=== PATIENT | male | born 1950 | race Caucasian/White ===

== ENCOUNTER 2022-01-27 11:30 | Outpatient (RCR) | payer MEDICARE, OTHER, SELFPAY ==
[2021-12-15 13:16] LABS: Basophils Absolute Auto 0.02 K/uL (0.00-0.30); Basophils Percent Auto 0.2 % (0.0-3.0); Eosinophils Absolute Auto 0.14 K/uL (0.00-0.50); Eosinophils Percent Auto 1.7 % (0.0-7.0); Hematocrit 42.6 % (37.0-53.0); Hemoglobin* 14.2 gm/dL (13.5-17.5); Immature Granulocytes Abs Auto 0.01 K/uL (0.00-0.30); Lymphocytes Absolute Auto 1.78 K/uL (0.90-2.90); Lymphocytes Percent Auto 22.1 % (20-44); Mean Corpuscular HGB Conc 33 gm/dL (32-36); Mean Corpuscular Hemoglobin 32 pg (26-34); Mean Corpuscular Volume 96 fL (80-100); Monocytes Percent Auto 8.4 % (0.0-11.0); Neutrophils Absolute Auto 5.43 K/uL (1.7-7.0); Neutrophils Percent Auto 67.5 % (42.0-72.0); Platelet Count* 404 K/uL (140-440); RDW Coefficient of Variation % 13.1 % (11.5-15.5); Red Blood Count 4.46 m/uL (4.30-5.90); White Blood Count* 8.06 K/uL (4.50-11.00)
[2021-12-15 13:30] LABS: Chloride* 102 mmol/L (96-114)
[2021-12-15 13:31] LABS: Potassium* 4.6 mmol/L (3.6-5.1); Sodium* 137 mmol/L (135-149)
[2021-12-15 13:33] LABS: Bilirubin Total* 0.4 mg/dL (0.1-1.5); Carbon Dioxide* 30 mmol/L (20-32); Creatinine* 0.6 mg/dL (0.5-1.5); Estimated Glomerular Filt Rate 103 ml/min; Total Protein* 6.9 g/dL (6.0-8.3)
[2021-12-15 13:34] LABS: Alanine Aminotransferase* 23 U/L (4-50); Alkaline Phosphatase* 150 U/L (40-150); Aspartate Amino Transferase* 24 U/L (12-35); Blood Urea Nitrogen* 16 mg/dL (7-30); Calcium* 8.9 mg/dL (8.4-10.6); Glucose* 233 mg/dL (60-115); Slide Review Reflex No
--- NOTE | 2021-12-16 13:56 | URNOTE ---
Request received from [facility] for prior authorization of Cisplatin [id number], Aloxi [id number] and Emend [id number]. Patient carries Medicare as primary insurance. Per CMS.gov LCD [id number] no prior authorization is required for Cisplatin. PEr CMS.gov no prior authorization is required for Aloxi and EMend. Services are based on medical necessity and follow Medicare guidelines.
[2021-12-19 11:17] VITALS: BP 136/79; PULSE 77; RESP 16; TEMP 36.2; O2SAT 96
[2021-12-19] MEDS: MAGNESIUM SULFATE 2 GM, POTASSIUM CHLORIDE 10 MEQ in 0.9 % SODIUM CHLORIDE 1000 ml 1,00... IV (12:35)
[2021-12-19] MEDS: dexAMETHasone 10 MG in 0.9 % SODIUM CHLORIDE 100 ml 100 ML 404 MG IVPB (13:26)
[2021-12-19] MEDS: PALONOSETRON 0.25 MG/5 ML inj IV (13:26)
[2021-12-19] MEDS: FOSAPREPITANT 150 MG inj 150 MG in 0.9 % SODIUM CHLORIDE 250 ml 250 ML 510 MG IVPB (14:02)
--- NOTE | 2021-12-20 16:28 | ONC.NURNOTE ---
Product Development Consultant called patient to see how he was and he stated he was great-no nausea so he hasn't needed any of those pills! Product Development Consultant re-explained that he was given a calendar with scheduled medications to prevent nausea and explained to him it's alot easier to treat nausea early before onset. Patient explains that he will start pills now.
[2021-12-27 09:10] LABS: Basophils Absolute Auto 0.03 K/uL (0.00-0.30); Basophils Percent Auto 0.4 % (0.0-3.0); Eosinophils Percent Auto 3.9 % (0.0-7.0); Hematocrit 40.7 % (37.0-53.0); Hemoglobin* 13.8 gm/dL (13.5-17.5); Immature Granulocytes Abs Auto 0.02 K/uL (0.00-0.30); Lymphocytes Absolute Auto 1.59 K/uL (0.90-2.90); Lymphocytes Percent Auto 20.7 % (20-44); Mean Corpuscular HGB Conc 34 gm/dL (32-36); Mean Corpuscular Hemoglobin 32 pg (26-34); Mean Corpuscular Volume 95 fL (80-100); Monocytes Percent Auto 10.4 % (0.0-11.0); Neutrophils Absolute Auto 4.95 K/uL (1.7-7.0); Neutrophils Percent Auto 64.3 % (42.0-72.0); Platelet Count* 384 K/uL (140-440); Red Blood Count 4.28 m/uL (4.30-5.90); White Blood Count* 7.69 K/uL (4.50-11.00)
[2021-12-27 09:12] VITALS: BP 120/76; PULSE 84; RESP 16; TEMP 36.6; O2SAT 95
[2021-12-27 09:14] LABS: Slide Review Reflex No
[2021-12-27 09:25] LABS: Albumin* 4.1 g/dL (3.3-5.0); Chloride* 98 mmol/L (96-114)
[2021-12-27 09:26] LABS: Potassium* 4.7 mmol/L (3.6-5.1); Sodium* 134 mmol/L (135-149)
[2021-12-27 09:28] LABS: Alkaline Phosphatase* 122 U/L (40-150); Aspartate Amino Transferase* 33 U/L (12-35); Bilirubin Total* 0.3 mg/dL (0.1-1.5); Blood Urea Nitrogen* 18 mg/dL (7-30); Carbon Dioxide* 30 mmol/L (20-32); Creatinine* 0.6 mg/dL (0.5-1.5); Estimated Glomerular Filt Rate 103 ml/min; Total Protein* 6.8 g/dL (6.0-8.3)
[2021-12-27 09:29] LABS: Alanine Aminotransferase* 28 U/L (4-50); Glucose* 265 mg/dL (60-115)
[2021-12-27 09:45] LABS: Magnesium* 1.8 mg/dL (1.5-2.6)
[2021-12-27] MEDS: MAGNESIUM SULFATE 2 GM, POTASSIUM CHLORIDE 10 MEQ in 0.9 % SODIUM CHLORIDE 1000 ml 1,00... IV (10:21)
[2021-12-27] MEDS: PALONOSETRON 0.25 MG/5 ML inj IV (11:45)
[2021-12-27] MEDS: dexAMETHasone 10 MG in 0.9 % SODIUM CHLORIDE 100 ml 100 ML 404 MG IVPB (11:48)
[2021-12-27] MEDS: FOSAPREPITANT 150 MG inj 150 MG in 0.9 % SODIUM CHLORIDE 250 ml 250 ML 510 MG IVPB (12:10)
[2022-01-02 09:42] LABS: Basophils Absolute Auto 0.02 K/uL (0.00-0.30); Basophils Percent Auto 0.2 % (0.0-3.0); Eosinophils Absolute Auto 0.18 K/uL (0.00-0.50); Eosinophils Percent Auto 1.7 % (0.0-7.0); Hematocrit 40.4 % (37.0-53.0); Hemoglobin* 13.5 gm/dL (13.5-17.5); Immature Granulocytes Abs Auto 0.02 K/uL (0.00-0.30); Lymphocytes Percent Auto 10.1 % (20-44); Mean Corpuscular HGB Conc 33 gm/dL (32-36); Mean Corpuscular Hemoglobin 32 pg (26-34); Mean Corpuscular Volume 96 fL (80-100); Monocytes Percent Auto 7.5 % (0.0-11.0); Neutrophils Percent Auto 80.3 % (42.0-72.0); Platelet Count* 338 K/uL (140-440); RDW Coefficient of Variation % 13.2 % (11.5-15.5); Red Blood Count 4.21 m/uL (4.30-5.90); White Blood Count* 10.29 K/uL (4.50-11.00)
[2022-01-02 09:51] LABS: Chloride* 100 mmol/L (96-114); Potassium* 4.6 mmol/L (3.6-5.1); Sodium* 136 mmol/L (135-149)
[2022-01-02 09:51] LABS: Slide Review Reflex No
[2022-01-02 09:53] LABS: Bilirubin Total* 0.4 mg/dL (0.1-1.5); Creatinine* 0.6 mg/dL (0.5-1.5); Estimated Glomerular Filt Rate 103 ml/min
[2022-01-02 09:54] LABS: Alanine Aminotransferase* 32 U/L (4-50); Alkaline Phosphatase* 113 U/L (40-150); Aspartate Amino Transferase* 30 U/L (12-35); Blood Urea Nitrogen* 19 mg/dL (7-30); Calcium* 8.8 mg/dL (8.4-10.6); Carbon Dioxide* 30 mmol/L (20-32); Glucose* 190 mg/dL (60-115); Total Protein* 6.7 g/dL (6.0-8.3)
[2022-01-02 11:08] LABS: Magnesium* 1.6 mg/dL (1.5-2.6)
[2022-01-02] MEDS: MAGNESIUM SULFATE 2 GM, POTASSIUM CHLORIDE 10 MEQ in 0.9 % SODIUM CHLORIDE 1000 ml 1,00... IV (11:43)
[2022-01-02] MEDS: PALONOSETRON 0.25 MG/5 ML inj IV (12:49)
[2022-01-02] MEDS: dexAMETHasone 10 MG in 0.9 % SODIUM CHLORIDE 100 ml 100 ML 404 MG IVPB (12:50)
[2022-01-02] MEDS: FOSAPREPITANT 150 MG inj 150 MG in 0.9 % SODIUM CHLORIDE 250 ml 250 ML 510 MG IVPB (13:22)
[2022-01-06 11:10] VITALS: BP 121/65; PULSE 88; RESP 18; TEMP 36.9; O2SAT 96
[2022-01-09 09:17] LABS: Basophils Absolute Auto 0.01 K/uL (0.00-0.30); Basophils Percent Auto 0.1 % (0.0-3.0); Eosinophils Absolute Auto 0.05 K/uL (0.00-0.50); Eosinophils Percent Auto 0.5 % (0.0-7.0); Hematocrit 38.7 % (37.0-53.0); Hemoglobin* 12.9 gm/dL (13.5-17.5); Immature Granulocytes Abs Auto 0.01 K/uL (0.00-0.30); Lymphocytes Percent Auto 7.3 % (20-44); Mean Corpuscular HGB Conc 33 gm/dL (32-36); Mean Corpuscular Hemoglobin 32 pg (26-34); Mean Corpuscular Volume 97 fL (80-100); Monocytes Percent Auto 7.6 % (0.0-11.0); Neutrophils Percent Auto 84.4 % (42.0-72.0); Platelet Count* 308 K/uL (140-440); Red Blood Count 4.01 m/uL (4.30-5.90); White Blood Count* 9.63 K/uL (4.50-11.00)
[2022-01-09 09:21] LABS: Slide Review Reflex No
[2022-01-09 09:26] VITALS: BP 96/58; PULSE 95; RESP 16; TEMP 36.9; O2SAT 95
[2022-01-09 09:35] LABS: Albumin* 3.8 g/dL (3.3-5.0); Chloride* 97 mmol/L (96-114); Sodium* 136 mmol/L (135-149)
[2022-01-09 09:37] LABS: Bilirubin Total* 0.5 mg/dL (0.1-1.5); Creatinine* 0.7 mg/dL (0.5-1.5); Estimated Glomerular Filt Rate 99 ml/min
[2022-01-09 09:38] LABS: Alanine Aminotransferase* 26 U/L (4-50); Alkaline Phosphatase* 101 U/L (40-150); Aspartate Amino Transferase* 29 U/L (12-35); Blood Urea Nitrogen* 24 mg/dL (7-30); Calcium* 8.1 mg/dL (8.4-10.6); Carbon Dioxide* 29 mmol/L (20-32); Glucose* 187 mg/dL (60-115); Magnesium* 1.2 mg/dL (1.5-2.6); Total Protein* 6.5 g/dL (6.0-8.3)
[2022-01-09] MEDS: PALONOSETRON 0.25 MG/5 ML inj IV (11:42)
[2022-01-09] MEDS: dexAMETHasone 10 MG in 0.9 % SODIUM CHLORIDE 100 ml 100 ML 404 MG IVPB (11:42)
[2022-01-09] MEDS: FOSAPREPITANT 150 MG inj 150 MG in 0.9 % SODIUM CHLORIDE 250 ml 250 ML 510 MG IVPB (12:03)
[2022-01-09] MEDS: SODIUM CHLORIDE 0.9 % (FLUSH) 10 ML SYRINGE IVF (14:30)
--- NOTE | 2022-01-09 15:04 | ONC.NURNOTE ---
Some slight learning disability. not taking in enough liquids or solids. enc pt to eat or drink anything possible. pt states nothing tastes well. offered a nurtrician consult. pt refused. states likes ice cream. enc with boost to make a shake. new rx for Mag. called in by Ayesha DAVIS. pt given written instructions on med and enc to warehouse order picker today and start. enc to take on empty stomach. pt states has a supportive friend. and excited to watch football tonight. plan for pt to return tomorrow for fluid and poss mag after his mag is checked. pt did not want to leave iv in.
[2022-01-10 09:33] VITALS: BP 118/60; PULSE 79; RESP 16; TEMP 36.6; O2SAT 96
[2022-01-10 10:26] LABS: Magnesium* 1.7 mg/dL (1.5-2.6)
--- NOTE | 2022-01-10 13:33 | ONC.NURNOTE ---
Pt here for magnesium recheck and fluids. VSS. Mag 1.7 today. Pt requesting fluids daily d/t to inability to eat and drink from pain/taste changes. Pt has been taking magic mouthwash and oxycodone for pain which was prescribed by Radiation oncology. Pt does c/o some nausea, no vomiting. Pt requesting refill of zofran. Pt also has had significant wt loss. Discussed with Ayesha Anderson APRN regarding symptoms pt experiencing. Ayesha Anedrson and field underwriter called and spoke to Odalys Short at radiation with concerns. Pt has an appt with Dr. Delgado tomorrow, nutrition consult ordered and roll winder will reach out to pt to see when he would like to meet. Zofran refilled by Ayesha Cade APRN. Will continue to monitor daily. Pt verbalized understanding of plan of care.
[2022-01-11 11:06] VITALS: BP 109/66; PULSE 85; RESP 16; TEMP 37; O2SAT 95
[2022-01-11] MEDS: 0.9 % SODIUM CHLORIDE 1000 ml 1,000 ML 700 ML IV (11:40)
[2022-01-11] MEDS: SODIUM CHLORIDE 0.9 % (FLUSH) 10 ML SYRINGE IVF (13:17)
[2022-01-12 11:15] VITALS: BP 118/68; PULSE 93; RESP 16; TEMP 36.8
[2022-01-12] MEDS: 0.9 % SODIUM CHLORIDE 1000 ml 1,000 ML IV (12:03)
[2022-01-13 11:36] VITALS: BP 112/69; PULSE 91; RESP 16; TEMP 37.1; O2SAT 94
[2022-01-13] MEDS: SODIUM CHLORIDE 0.9 % (FLUSH) 10 ML SYRINGE IVF (12:02)
[2022-01-13] MEDS: 0.9 % SODIUM CHLORIDE 1000 ml 1,000 ML IV (12:04)
[2022-01-13 12:21] LABS: Chloride* 99 mmol/L (96-114); Sodium* 139 mmol/L (135-149)
[2022-01-13 12:22] LABS: Potassium* 3.6 mmol/L (3.6-5.1)
[2022-01-13 12:24] LABS: Creatinine* 0.8 mg/dL (0.5-1.5); Estimated Glomerular Filt Rate 95 ml/min
[2022-01-13 12:25] LABS: Blood Urea Nitrogen* 28 mg/dL (7-30); Calcium* 7.7 mg/dL (8.4-10.6); Carbon Dioxide* 29 mmol/L (20-32); Glucose* 192 mg/dL (60-115)
[2022-01-13 12:28] LABS: Magnesium* 0.9 mg/dL (1.5-2.6)
[2022-01-13] MEDS: MAGNESIUM IV 2 GM/50 ML PIGGYBACK IVPB ×2 (12:46→14:28)
[2022-01-13 15:25] LABS: Albumin* 3.5 g/dL (3.3-5.0)
[2022-01-13 15:28] LABS: Alkaline Phosphatase* 85 U/L (40-150); Aspartate Amino Transferase* 36 U/L (12-35); Bilirubin Direct* 0.3 mg/dL (0.0-0.5); Bilirubin Total* 0.5 mg/dL (0.1-1.5); Total Protein* 6.2 g/dL (6.0-8.3)
[2022-01-13 15:29] LABS: Alanine Aminotransferase* 26 U/L (4-50)
[2022-01-14 13:12] VITALS: BP 129/68; PULSE 76; RESP 18; TEMP 37.1; O2SAT 94
[2022-01-14] MEDS: MAGNESIUM SULFATE 2 GM, POTASSIUM CHLORIDE 10 MEQ in 0.9 % SODIUM CHLORIDE 1000 ml 1,00... IV (13:13)
[2022-01-14] MEDS: SODIUM CHLORIDE 0.9 % (FLUSH) 10 ML SYRINGE IVF (13:13)
[2022-01-15 12:55] VITALS: BP 126/68; PULSE 89; RESP 16; TEMP 36.8; O2SAT 96
[2022-01-15] MEDS: MAGNESIUM SULFATE 2 GM, POTASSIUM CHLORIDE 10 MEQ in 0.9 % SODIUM CHLORIDE 1000 ml 1,00... IV (13:02)
[2022-01-16 09:30] VITALS: BP 147/82; PULSE 74; RESP 16; TEMP 36.4; O2SAT 95
[2022-01-16 09:34] LABS: Basophils Absolute Auto 0.01 K/uL (0.00-0.30); Basophils Percent Auto 0.2 % (0.0-3.0); Eosinophils Absolute Auto 0.03 K/uL (0.00-0.50); Eosinophils Percent Auto 0.6 % (0.0-7.0); Hemoglobin* 12.7 gm/dL (13.5-17.5); Immature Granulocytes Abs Auto 0.01 K/uL (0.00-0.30); Lymphocytes Percent Auto 10.7 % (20-44); Mean Corpuscular HGB Conc 34 gm/dL (32-36); Mean Corpuscular Hemoglobin 33 pg (26-34); Mean Corpuscular Volume 95 fL (80-100); Monocytes Percent Auto 11.7 % (0.0-11.0); Neutrophils Percent Auto 76.6 % (42.0-72.0); Platelet Count* 226 K/uL (140-440); RDW Coefficient of Variation % 13.5 % (11.5-15.5); White Blood Count* 4.88 K/uL (4.50-11.00)
[2022-01-16 09:37] LABS: Slide Review Reflex No
[2022-01-16 10:09] LABS: Albumin* 3.7 g/dL (3.3-5.0); Blood Urea Nitrogen* 18 mg/dL (7-30); Calcium* 7.2 mg/dL (8.4-10.6); Carbon Dioxide* 29 mmol/L (20-32); Chloride* 100 mmol/L (96-114); Creatinine* 0.7 mg/dL (0.5-1.5); Estimated Glomerular Filt Rate 98 ml/min; Glucose* 182 mg/dL (60-115); Sodium* 143 mmol/L (135-149); Total Protein* 6.4 g/dL (6.0-8.3)
[2022-01-16 10:10] LABS: Alanine Aminotransferase* 26 U/L (4-50); Alkaline Phosphatase* 91 U/L (40-150); Aspartate Amino Transferase* 40 U/L (12-35); Bilirubin Total* 0.6 mg/dL (0.1-1.5)
[2022-01-16 10:11] LABS: Potassium* 2.9 mmol/L (3.6-5.1)
[2022-01-16] MEDS: SODIUM CHLORIDE 0.9 % (FLUSH) 10 ML SYRINGE IVF (10:51)
--- NOTE | 2022-01-16 11:09 | ONC.NURNOTE ---
Patient here for IV fluids stating I can't eat or drink so I need fluids-give me some water! States he has been unable to get anything in over weekend and not just from pain but also due to nausea. He did state he could take his nauseapill a few times but still can't eat or drink. Documentation Lead asked about diabetes and patient states his sugars have been steady at a good number does state he isin't taking as much insulin and then adjusto writer operator asked how he knew his sugar was getting low or was low and he stated he would get shaky and then would drink orange juice so adjusto writer operator let him know he said he couldn't drink but he said don't work I'd get something in. Tried to explain to patient that his electrolytes ar elow as well which are important for cardiac reasons and he stated that he would just come in everyday so we could fix him. Ayesha Cade APRN will see patient today-Patient put in for Maria E on
[2022-01-17 09:14] VITALS: BP 163/85; PULSE 71; RESP 16; TEMP 36.2
[2022-01-17 09:41] LABS: Chloride* 99 mmol/L (96-114); Sodium* 138 mmol/L (135-149)
[2022-01-17] MEDS: SODIUM CHLORIDE 0.9 % (FLUSH) 10 ML SYRINGE IVF (09:43)
[2022-01-17 09:44] LABS: Creatinine* 0.6 mg/dL (0.5-1.5); Estimated Glomerular Filt Rate 103 ml/min
[2022-01-17 09:45] LABS: Blood Urea Nitrogen* 15 mg/dL (7-30); Calcium* 7.3 mg/dL (8.4-10.6); Carbon Dioxide* 25 mmol/L (20-32); Glucose* 174 mg/dL (60-115); Magnesium* 1.2 mg/dL (1.5-2.6)
[2022-01-17 09:49] LABS: Potassium* 2.9 mmol/L (3.6-5.1)
[2022-01-18 08:36] VITALS: BP 148/77; PULSE 77; RESP 18; TEMP 37.4; O2SAT 97
[2022-01-18] MEDS: SODIUM CHLORIDE 0.9 % (FLUSH) 10 ML SYRINGE IVF ×2 (09:00→11:35)
[2022-01-18 09:11] LABS: Albumin* 3.7 g/dL (3.3-5.0); Chloride* 99 mmol/L (96-114)
[2022-01-18 09:12] LABS: Sodium* 140 mmol/L (135-149)
[2022-01-18 09:14] LABS: Carbon Dioxide* 28 mmol/L (20-32); Creatinine* 0.6 mg/dL (0.5-1.5); Estimated Glomerular Filt Rate 103 ml/min
[2022-01-18 09:16] LABS: Potassium* 2.9 mmol/L (3.6-5.1)
[2022-01-18 09:17] LABS: Blood Urea Nitrogen* 15 mg/dL (7-30); Calcium* 7.2 mg/dL (8.4-10.6)
[2022-01-18 09:18] LABS: Alanine Aminotransferase* 24 U/L (4-50); Alkaline Phosphatase* 89 U/L (40-150); Aspartate Amino Transferase* 36 U/L (12-35); Bilirubin Total* 0.5 mg/dL (0.1-1.5); Glucose* 177 mg/dL (60-115); Magnesium* 1.4 mg/dL (1.5-2.6); Total Protein* 6.2 g/dL (6.0-8.3)
--- NOTE | 2022-01-18 11:35 | ONC.NURNOTE ---
Patient here for fluids today. PLACEMENT SPECIALIST ordered CMP and magnesium level. These were resulted and found to be low again. IV had potassium and magnesium in them. Per patient at arrival, he will be admitted to [facility] after his infusion today. Nursing called radiation oncology to find out the plan for patient, and they note that they are still in conversation with [facility] to find a bed for patient. Patient stated to life underwriter that he plans to go to ER if they are unable to do a direct admit. This was passed onto PA with radiation oncology, she would like to avoid this as possible as it will take a long time. Radiation oncology requests to have patient come to them for earlier radiation, at which point they hope to have a bed lined up for patient. Import Coordination And Production Head asked that they please call our office to let us know the plan for patient when they are done. They were notified that PLACEMENT SPECIALIST is not in the office today, but that she is in communication with nursing for patient care, but that patient requests to go to [facility] versus coming back to us. PIV left in place in the situation that he comes back to us for further treatment here.
--- NOTE | 2022-01-27 10:54 | ONC.NURNOTE ---
Called patient to see if he is planning to come to [facility] tomorrow, as this is an old appointment. He said that he is currently residing in [place] with his sister and will not be coming to [place]. He was requesting pain medication, and radiation oncology has been managing this and they currently have a task out for this. Patient is aware of this. Asked to schedule the patient for a follow up with medical oncology, and he declined at this time. He notes that when he talks with radiation oncology, he will set something up with them. Timing Adjuster called radiation oncology and asked that they please let us know when patient is scheduled so that we can coordinate care for patient.
== END 2022-06-13 23:59 | disposition home or self-care (01) ==
LOC: CCIC 11:30
PROVIDERS: Clinical Nurse Specialist; Nurse Practitioner Family; PCP Surgery; Referring Provider Surgery; Visit Provider Internal Medicine
DX: C09.9 Malignant neoplasm of tonsil, unspecified (principal)
CPT/HCPCS: 36415; 36592; 80048; 80053; 80076; 83735; 85025; 96360; 96361; 96365; 96366; 96368; 96376; 96413; 99202; 99205; 99211; 99212; 99214; 99215; J0610; J1100; J1453; J2469; J3475; J3480; J7030; J7050; J7120; J9060

== ENCOUNTER 2022-05-11 14:21 | Outpatient (CLI) | payer MEDICARE, OTHER, SELFPAY ==
--- NOTE | 2022-05-11 14:45 | CRLHL7_ITS ---
For Patients: As a result of the 21st Century Cures Act, medical imaging exams and procedure reports are released immediately into your electronic medical record. You may view this report before your referring provider. If you have questions, please contact your health care provider. 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 Exam is being performed for restaging. TECHNIQUE: Patient received 13.1 millicuries of 18 FDG (18 fluorodeoxyglucose) intravenously. PET-CT imaging has been performed from the superior skull to mid thigh level [address] images have been obtained for attenuation correction and localization only. Blood glucose level: 189 mg/dL. COMPARISON: PET-CT dated 08/04/2021. FINDINGS: No abnormal uptake is identified in the mediastinum or hilar regions. The lungs demonstrate no significant abnormal uptake. Large calcified left hilar lymph nodes are noted. Large calcified nodule left lower lobe is identified. These findings are unchanged. The lungs demonstrate no significant abnormal uptake. Mild scarring in the left lung base is noted. The axilla and chest wall demonstrates no significant abnormal uptake. Visualized bilateral upper extremities demonstrate no abnormal uptake. Within the neck no abnormal hypermetabolic lymph nodes or masses are identified. There are posttreatment changes along the left neck. Focus of activity in the posterior lower musculature of the left neck is identified which is likely physiologic. There is a soft tissue nodule in the medial right maxillary sinus which is new. This demonstrates no abnormal uptake in is likely a retention cyst. Skullbase is unremarkable. Visualized scalp demonstrates no significant abnormal uptake. Limited assessment of the intracranial structures is unremarkable. The liver demonstrates no significant abnormal uptake. Numerous calcifications within the spleen are identified without abnormal uptake. The pancreas and bilateral adrenal glands demonstrate no significant abnormal uptake. The retrocrural region and retroperitoneum demonstrate no significant abnormal uptake. Iliac lalitha chain and groin demonstrate no abnormal uptake. There is some loss of counts within the pelvis due to the retained activity in the urinary bladder. Physiologic bowel and ureteric activity is noted. No suspicious skeletal lesions are seen. IMPRESSION: 1. No significant abnormal uptake is identified to suggest residual viable tumor or recurrent disease. There are posttreatment changes within the left neck. 2. Probable retention cyst right maxillary sinus without significant abnormal uptake. 3. No suspicious findings for distal metastatic disease. Other PET-CT findings as detailed above. Dictated by Vaughn Cook MD @ 05/19/2022 8:54:34 AM (Electronically Signed)
== END 2022-05-11 14:22 | disposition home or self-care (01) ==
LOC: RAD 14:22
PROVIDERS: PCP Surgery; Visit Provider Physician Assistant
DX: C09.9 Malignant neoplasm of tonsil, unspecified (principal)
CPT/HCPCS: 78815; A9552

== ENCOUNTER 2022-09-20 09:30 | Outpatient (RCR) | payer MEDICARE, OTHER, SELFPAY ==
--- NOTE | 2022-06-22 18:46 | OT.OPLE ---
OT Outpatient Lymphedema Eval OT Outpatient Lymphedema Eval Start: 06/22/22 18:02 Freq: Status: Active Protocol: Document 06/22/22 18:03 AMB (Rec: 06/22/22 18:42 AMB [id number]) E-signed By Bridgette Peck, OTR/L, CLT, DOOR REPAIRMAN OT Outpatient Evaluation Details Type Type Eval Complexity Low OT OP Lymphedema Evaluation Insurance Information Insurance Information Medicare B Current Condition/Medical Diagnosis Referring Provider Odalys Bragg PA-C Treatment Diagnosis Submental Lymphedema Date Of Onset 11/01/22 Medical Contraindications DM,CA,Stroke Current Work Status Current Work Status Retired Subjective Subjective Pt states he feels like he is doing well. Pt feels like the swelling in his neck has really improved, he has been working on the massage and exercises that the other therapist gave me. Pt also feels like the stiffness in his neck has really improved. Medical History Medical History Cancer Treatment/Surgery,DM, Radiation,Smoking,Chemo Medical History Comments Pt had a stroke in April which resulted in an emergency hospitalization with surgery to remove a blood clot from the LMCA. Testing procedures done during this hospitalization revealed an enlarged LN in the left side of his neck was was later removed and found to be cancerous. It was determined that the cancer originated in his left tonsil, bilateral tonsils were removed. Pt also underwent 30 rounds of radiation and 5 rounds of chemo. Pt really struggled with the last rounds of radiation, ended up having a feeding tube placed which has since been removed. 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 PMH also includes prostate cancer with prostectomy. Surgical History Surgical History Please see above Medications Medications Insulin Family History Family History of Lymphedema Yes Family History of Lymphedema Comments Pt states his sister had cancer of her leg and she ended up with swelling in her ankle. Living Situation Current Living Situation Comments The patient is . He has 3 children and 4 grandchildren. 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 He is a current smoker, half a pack a day, he quit at age 23 for approximately 30 years and restarted again once he was . No alcohol consumption, past history of alcohol abuse, quit approximately 7 years ago. Currently lives with roommate. Exercise History Does Patient Exercise Regularly No Exercise Comments Pt likes to golf in the summer . He states compliance with his neck and jaw ROM exs that he was given in PT Pain Pain Yes Pain Comments Pt states he rarely has any pain, if he does it's never more than a 1/10, soreness in my neck Loss of Function/Strength/Mobility Loss Of Function/Strength/Mobility No Loss Of Function/Strength/Mobility Mild tightness in end ranges Comments of cervical ROM. Previous Treatment Previous Treatment For Swelling/ MLD,Self Massage Lymphedema Previous Treatment/Current Home Program Pt was given a HEP during his course of PT that includes self MLD and ROM exs for C- spine and jaw. Compression History Does Patient Currently Wear Compression No During Daytime Does Patient Currently Wear Compression No At Night Current Swelling (Location/Pitting/Texture) Pitting Scale: 0 = No pitting 1+ Tissue returns to normal almost immediately 2+ Tissue returns after 15-30 seconds 3+ Tissue returns after 1-1/2 minutes 4+ Tissue returns after 2-3 minutes N/A Tissue no longer pits due to induration Tissue texture: Soft or indurated Clinical Presentation Area Submental Clinical Presentation Pitting No pitting Clinical Presentation Texture Soft, very mild, grade 0-1 lymphedema in the submental region. Type of Swelling Post Surgery/Traumatic Edema Staging Staging Stage 1 Skin Changes Skin Changes Fibrosis Skin Changes Comments Mild radiation induce fibrosis in the left neck region. Head & Neck Submental 67.5 Targus To Targus 29.5 Mandible To Mandible 18.0 Proximal Neck 44.0 Mid Neck 40.5 Base Of Neck 41.0 Total 240.5 Assessment Assessment Pt is a very pleasant 72yo male referred to OT secondary to submental lymphedema following cancer surgery and treatment (chemo / radiation) for tonsil cancer. Pt developed mild swelling ( lymphedema) in the submental region along with very mild radiation fibrosis. Pt was seen by PT back in March, he was given a HEP for cervical and jaw ROM and self MLD. According to pt, his swelling was more evident in March, he has been working on his home program and it has really improved, also feels like his neck is nearly back to normal as far as strength and ROM is concerned. Pt was provided with additional education regarding lymphedema and risk factors, circumferential measurements of the head and neck were also taken. Pt would like to continue with HEP / self MLD and return for re-assessment in 2 months to be sure that he has maintained his reduction / re-assess home program. Pt will benefit from 2-3 more visits to monitor progress with upgraded home program as needed. Pt will contact senior writer if he should have any concerns or questions prior to next visit. Problem List Problem List Limited Knowledge of Lymphedema Treatment/Condition /Precautions,Limited Knowledge of Skin Care & Infection Precautions,Significant Risk For Infection For Lymphedema Related Complications Patient Goals Patient Goals 1. Pt will demonstrate a general understanding of the lymphatic system, s/s of lymphedema, treatment of lymphedema, implications of untreated lymphedema, s/s of infection and the correlation of infection related to lymphedema. 3 months 2. Pt will be compliant with re-assessments for lymphedema surveillance in order to obtain early intervention with best outcomes if needed. 12 months Treatment Plan Treatment Plan Evaluation,Edema Control,Wound Care/Scar Management, Therapeutic Exercise, Therapeutic Activities,Self- Care/Home Management,Education Other Treatment Plan Re-assess in 8 weeks Expected Duration 4-6 Weeks Certification Certification I Certify That: Therapy Services Provided, Therapy Plan Established, Therapy Plan Reviewed Recertification Information Recertification Information Initial Certification Date 06/22/22 Recertification Due Date 09/20/22 Reasons to Continue Skilled Therapy Initiated OT today for lymphedema education and surveillance. Rehabilitation Potential Good Continued Plan of Care and Interventions Re-assess in 8 weeks. Provider Signature Shows Agreement With POC & Medical Necessity Physician Comment/Change Comment or Changes Physician NPI Number #
== END 2022-12-22 16:16 | disposition home or self-care (01) ==
PROVIDERS: PCP Surgery; Visit Provider Physician Assistant
DX: I89.8 Other specified noninfective disorders of lymphatic vessels and lymph nodes (principal); Z51.89 Encounter for other specified aftercare
CPT/HCPCS: 97110; 97140; 97161; 97165; 97535

== ENCOUNTER 2022-12-11 14:59 | Outpatient (RCR) | payer MEDICARE, OTHER, SELFPAY ==
[2022-12-11 17:19] LABS: Free T4 Free Thyroxine* 0.79 ng/dL (0.70-1.85)
== END 2023-06-09 23:59 | disposition home or self-care (01) ==
LOC: CCIC 14:59
PROVIDERS: PCP Surgery; Referring Provider Surgery; Visit Provider Internal Medicine
DX: C09.9 Malignant neoplasm of tonsil, unspecified (principal); R53.0 Neoplastic (malignant) related fatigue
CPT/HCPCS: 36415; 84439

== ENCOUNTER 2023-02-08 10:44 | Outpatient (CLI) | payer MEDICARE, OTHER, SELFPAY ==
--- NOTE | 2023-02-08 11:00 | CRLHL7_ITS ---
For Patients: As a result of the Century Cures Act, medical imaging exams and procedure reports are released immediately into your electronic medical record. You may view this report before your referring provider. If you have questions, please contact your health care provider. CLINICAL INFORMATION: Malignant neoplasm of the tonsil. TECHNIQUE: Contrast-enhanced CT of the chest was obtained. Coronal and sagittal reformatted images were obtained. Contrast: 76 mL of Omnipaque 350 intravenous contrast was injected uneventfully prior to image acquisition. Radiation Dose Estimate (Total Exam DLP): 693 mGy-cm. COMPARISON: PET-CT 05/11/2022 08/04/2021. FINDINGS: Chest: Thyroid: Unremarkable Lungs: Stable appearing calcified left lower lobe granulomas. Bibasilar dependent atelectatic changes. No focal airspace opacities or pleural effusions. No suspicious pulmonary nodules. Heart/Pericardium: Heart normal in size. No pericardial effusion. No central filling defects within the main, left, and right pulmonary arteries. Lymph Nodes: Calcified mediastinal left hilar lymph nodes. Upper Abdomen: Stable hypoattenuated right hepatic lobe lesion. Scattered calcified granulomas in the liver and spleen. Musculoskeletal: Visualized osseous structures demonstrate diffuse degenerative changes. IMPRESSION: 1. Stable appearing granulomatous disease in the chest. No suspicious pulmonary lesions. No evidence of metastatic disease. Please note that all CT scans at this facility use dose modulation, iterative reconstruction, and/or weight-based dosing when appropriate to reduce radiation dose to as low as reasonably achievable. Dictated by Demar Cooley MD @ 02/10/2023 8:42:19 PM (Electronically Signed)
--- NOTE | 2023-02-08 11:00 | CRLHL7_ITS ---
For Patients: As a result of the Cures Act, medical imaging exams and procedure reports are released immediately into your electronic medical record. You may view this report before your referring provider. If you have questions, please contact your health care provider. INDICATION: History of malignant neoplasm of the tonsil and associated left side metastatic lymphadenopathy. Status post tonsillectomy and chemo radiation. Follow up. TECHNIQUE: CT images were acquired through the neck from above the orbits to the superior mediastinum during infusion of iodinated contrast. Multiplanar reconstructions are obtained. COMPARISON: CTA exam of the neck dated 05/13/2021. FINDINGS: No evidence of recurrent/residual mass seen in the oropharynx/tonsillar fossa at this time. Previously noted enlarged hypodense lymph nodes within the left upper neck are no longer seen, consistent with surgical resection or response to chemo radiation. Associated diminished fat planes within the left carotid space consistent with prior treatment changes. No new enlarged lymph nodes seen within the neck soft tissues. Nasal fossa, nasopharynx are unremarkable. The parotid and submandibular glands unremarkable. Subtle increased densities within the supraglottic fat consistent with post treatment change. Thyroid gland unremarkable. Advanced degenerative changes in the cervical spine. IMPRESSION: 1. Consistent with post treatment changes in the left upper neck, supraglottis and oral pharynx. 2. No CT evidence of recurrent/residual tumor within the neck soft tissues at this time. 3. Advanced degenerative changes in the cervical spine. Please note that all CT scans at this facility use dose modulation, iterative reconstruction, and/or weight-based dosing when appropriate to reduce radiation dose to as low as reasonably achievable. Dictated by Maulik Brothers MD @ 02/09/2023 8:46:23 PM (Electronically Signed)
[2023-02-08 11:16] LABS: Creatinine* 0.8 mg/dL (0.5-1.5); Estimated Glomerular Filt Rate 93 ml/min
== END 2023-02-08 10:45 | disposition home or self-care (01) ==
LOC: CT 10:45
PROVIDERS: PCP Surgery; Visit Provider Internal Medicine
DX: C09.9 Malignant neoplasm of tonsil, unspecified (principal); M50.30 Other cervical disc degeneration, unspecified cervical region
CPT/HCPCS: 36415; 70491; 71260; 82565; Q9967

== ENCOUNTER 2023-06-26 13:23 | Outpatient (CLI) | payer MEDICARE, OTHER, SELFPAY | END 2023-06-26 13:24 | disposition home or self-care (01) | PROVIDERS: PCP Surgery; Visit Provider Nurse Practitioner | DX: C09.9 Malignant neoplasm of tonsil, unspecified (principal); R53.0 Neoplastic (malignant) related fatigue | CPT/HCPCS: 36415; 84443 ==

== ENCOUNTER 2024-01-30 11:35 | Outpatient (CLI) | payer MEDICARE, OTHER, SELFPAY ==
[2024-01-30 12:03] LABS: Creatinine* 0.8 mg/dL (0.5-1.5); Estimated Glomerular Filt Rate 93 ml/min
--- NOTE | 2024-01-30 13:00 | CRLHL7_ITS ---
For Patients: As a result of the Century Cures Act, medical imaging exams and procedure reports are released immediately into your electronic medical record. You may view this report before your referring provider. If you have questions, please contact your health care provider. Indication: F/U CANCER OF TONSIL Technique: CT Chest WITH 76 CC ISOVUE 370 Please note that all CT scans at this facility use dose modulation, iterative reconstruction, and/or weight-based dosing when appropriate to reduce radiation dose to as low as reasonably achievable. Comparison: 05/11/2022, 02/08/2023 Findings: Calcified granulomas in the left lower lobe and calcified left hilar lymph nodes. Calcified subcarinal lymph node. Multiple calcified granulomas in the liver and spleen. No adenopathy. Stable benign low-density lesion within the right hepatic lobe consistent with hemangioma. No adrenal nodule. No suspicious thyroid nodule. Degenerative joint disease of both shoulders with chronic densities adjacent to the left proximal humerus. Chronic changes to the right acromion. Multilevel discogenic spurring lower thoracic spine without acute fracture. Impression: Stable CT chest with no suspicious findings. Chronic granulomatous changes. Please note that all CT scans at this facility use dose modulation, iterative reconstruction, and/or weight-based dosing when appropriate to reduce radiation dose to as low as reasonably achievable. Dictated by Jesus Tong MD @ 01/31/2024 12:58:43 PM (Electronically Signed)
--- NOTE | 2024-01-30 13:00 | CRLHL7_ITS ---
For Patients: As a result of the Century Cures Act, medical imaging exams and procedure reports are released immediately into your electronic medical record. You may view this report before your referring provider. If you have questions, please contact your health care provider. INDICATION: Tonsillar cancer. COMPARISON: 02/08/2023. TECHNIQUE: CT soft tissue neck with IV contrast. FINDINGS: Normal bilateral parotid and submandibular glands. Normal thyroid gland. No enlarged cervical lymph nodes bilaterally. No supraclavicular superior mediastinal adenopathy. Nasopharynx and oropharynx are clear. No inflammation within the paravertebral fat pads or retropharyngeal space. Stable postop changes of bilateral tonsillectomy. No residual recurrent tonsillar mass. No mass or asymmetry at the base of tongue. Normal thickness of the epiglottis. Normal glottis with symmetric vocal cords. Lung apices are clear. Normal alignment the cervical spine. Cervical spondylosis. No prevertebral soft tissue swelling. Mucosal thickening left maxillary sinus. Remaining visualized paranasal sinuses and mastoid air cells are clear. IMPRESSION: 1. No adenopathy. 2. Stable postop changes of bilateral tonsillectomy. No residual or recurrent tonsillar mass. 3. Nasopharynx and oropharynx are clear. No inflammation within the paravertebral fat pads or retropharyngeal space. 4. No prevertebral soft tissue swelling Please note that all CT scans at this facility use dose modulation, iterative reconstruction, and/or weight-based dosing when appropriate to reduce radiation dose to as low as reasonably achievable. Dictated by Anatoly Hodges MD @ 01/31/2024 11:39:25 AM (Electronically Signed)
== END 2024-01-30 11:36 | disposition home or self-care (01) ==
LOC: CT 11:36
PROVIDERS: PCP Surgery; Visit Provider Nurse Practitioner
DX: C09.9 Malignant neoplasm of tonsil, unspecified (principal)
CPT/HCPCS: 36415; 70491; 71260; 82565; Q9967

== ENCOUNTER 2024-02-19 10:21 | Outpatient (CLI) | payer MEDICARE, OTHER, SELFPAY ==
[2024-02-19 11:02] LABS: Creatinine* 0.8 mg/dL (0.5-1.5); Estimated Glomerular Filt Rate 93 ml/min
== END 2024-02-19 10:22 | disposition home or self-care (01) ==
PROVIDERS: PCP Surgery; Visit Provider Nurse Practitioner
DX: C09.9 Malignant neoplasm of tonsil, unspecified (principal); Z08 Encounter for follow-up examination after completed treatment for malignant neoplasm
CPT/HCPCS: 36415; 82565; 84443

== ENCOUNTER 2025-02-11 12:20 | Outpatient (CLI) | payer MEDICARE, OTHER, SELFPAY ==
--- NOTE | 2025-02-11 13:00 | CRLHL7_ITS ---
For Patients: As a result of the Century Cures Act, medical imaging exams and procedure reports are released immediately into your electronic medical record. You may view this report before your referring provider. If you have questions, please contact your health care provider. CLINICAL HISTORY: Malignant neoplasm tonsil TECHNIQUE: The carotid circulations and the vertebral arteries in the neck were examined with dozier-scale ultrasound, color-flow and Doppler spectral analysis. Degrees of stenosis were determined using SRU 2002 Consensus Panel Criteria. FINDINGS: Sonographic images demonstrate bilateral atherosclerotic plaque formation without suspicious soft tissue mass. There was antegrade blood flow demonstrated within the vertebral arteries and the subclavian arteries demonstrated a normal triphasic waveform. The spectral Doppler tracings of the common carotid, internal and external carotid arteries demonstrate no abnormal turbulence or spectral broadening. There was significant elevation of peak systolic blood flow within the right proximal ICA measuring 156 cm/second which would indicate a hemodynamically-significant stenosis by SRU criteria. The ICA/CCA peak systolic velocity ratio measures 1.7 on the right and 0.9 on the left. 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 Less than 50 percent stenosis of the left ICA. Dictated by Jesus Tong MD @ 02/11/2025 4:27:52 PM (Electronically Signed)
--- NOTE | 2025-02-11 14:00 | CRLHL7_ITS ---
For Patients: As a result of the Century Cures Act, medical imaging exams and procedure reports are released immediately into your electronic medical record. You may view this report before your referring provider. If you have questions, please contact your health care provider. Indication: MALIGNANT NEOPLASM OF TONSIL, S/P CHEMO COMPLETE 02/11 Technique: Noncontrast chest CT Please note that all CT scans at this facility use dose modulation, iterative reconstruction, and/or weight-based dosing when appropriate to reduce radiation dose to as low as reasonably achievable. Comparison: 01/30/2024 Findings: Multiple calcified splenic granulomas again noted. Calcified hepatic granulomas are also present. Similar lesion within the periphery of the right hepatic lobe. Calcification associated with the pancreatic tail is unchanged. No adrenal nodule. Atherosclerotic changes. No hiatal hernia. Visualized thyroid normal. No enlarged mediastinal, hilar or axillary lymph nodes. Densely calcified left hilar lymph nodes and calcified left lower lobe pulmonary granulomas representing sequela of granulomatous disease. Small calcified granuloma superior segment left lower lobe. Scarring in the lung bases. No infiltrate or edema. No effusion or pneumothorax. Tiny 2 millimeter nodule within the right upper lobe, 07/20. Osseous structures are similar. Impression: Stable chronic changes related to old granulomatous exposure. Stable benign intrahepatic hemangioma. 2 millimeter right upper lobe nodule, likely similar although prior studies are somewhat limited due to incomplete inspiration. Attention on follow-up recommended. Please note that all CT scans at this facility use dose modulation, iterative reconstruction, and/or weight-based dosing when appropriate to reduce radiation dose to as low as reasonably achievable. Dictated by Jesus Tong MD @ 02/12/2025 10:50:55 AM (Electronically Signed)
== END 2025-02-11 12:21 | disposition home or self-care (01) ==
LOC: US 12:21
PROVIDERS: PCP Surgery; Visit Provider Nurse Practitioner
DX: C09.9 Malignant neoplasm of tonsil, unspecified (principal); I65.23 Occlusion and stenosis of bilateral carotid arteries; R91.8 Other nonspecific abnormal finding of lung field; F17.200 Nicotine dependence, unspecified, uncomplicated; Z09 Encounter for follow-up examination after completed treatment for conditions other than malignant neoplasm
CPT/HCPCS: 71250; 93880

== ENCOUNTER 2025-04-19 03:27 | Outpatient (CLI) | payer MEDICARE, OTHER, SELFPAY | END 2025-04-19 03:28 | disposition home or self-care (01) | LOC: AMB 04-20 00:39 | PROVIDERS: PCP Surgery; Visit Provider Family Medicine | DX: K08.89 Other specified disorders of teeth and supporting structures (principal) | CPT/HCPCS: A0998 ==

== ENCOUNTER 2025-04-19 03:58 | Emergency (ER) | payer MEDICARE, OTHER, SELFPAY ==
--- OUTSIDE RECORDS SUMMARY | 2025-04-19 04:00 | XMS_ITS | Clinical Summary ---
Author Organization [facility] Address [address] [place] [address] Care Team Providers Care Concrete Pourer Name Role Phone Elsewhere, Pcp Primary Care Provider Unavailabl e Source Comments Patient records contain information from all sites at [facility]. For routine questions regarding patient records, call [phone] during business hours, M-F 8:00 AM - 5:00 PM Central Time. Record requests for emergency care only can be directed to [phone] at any time.[facility] Allergies No known active allergies Medications MedicationSigDispense QuantityRefillsLast FilledStart DateEnd DateStatus atorvastatin (LIPITOR) 40 mg tablet Take 40 mg by mouth daily.05/30/2021ctive blood sugar diagnostic (OneTouch Verio test strips) strips 3 (three) times a day.03/05/2020Active FreeStyle Neha 14 Day Sensor kit See Admin Instructions.11/23/2021ctive diphenhydramine-lidocaine 2 %-antacid (mw) Take 10 mL by mouth 4 (four) times a day before meals and bedtime. Do not eat or drink for 15-30 minutes after use. 480 mL 01/03/2022ctive guaiFENesin (ROBITUSSIN) 100 mg/5 mL liquid Take 10 mL (200 mg total) by mouth every 4 (four) hours as needed for congestion. 180 mL ctive magnesium oxide (MAG-OX) 400 mg (241.3 mg magnesium) tablet Take 400 mg by mouth every morning before breakfast.Active prochlorperazine (COMPAZINE) 10 mg tablet Take 10 mg by mouth 3 (three) times a day as needed for nausea or vomiting. Active OLANZapine (ZyPREXA) 5 mg tablet Take 5 mg by mouth daily as needed (N/V).Active sennosides (SENOKOT) 8.6 mg tablet 1 tablet (8.6 mg total) by gastric tube route 2 (two) times a day.01/24/2022 Active naloxone (NARCAN) 4 mg/actuation nasal spray Administer 1 spray (4 mg total) into one nostril as needed for reversal. Use 1 spray in 1 nostril. Repeat with second device in other nostril after 2-3 minutes if no or minimal response. 2 each 02/01/2022ctive Additional Information Patient not taking.Reported on 02/19/2024 insulin glargine 100 unit/mL (3 mL) injection INJECT 7 UNTIS SUBCUTANEOUSLY AT BEDTIME 15 mL 01/24/2022ctive buPROPion (WELLBUTRIN SR) 150 mg 12 hr tablet TAKE 1 TABLET BY MOUTH DAILY 14 tablet 01/24/2022ctive insulin lispro 100 unit/mL injection INJECT 12 UNITS SUBCUTANEOUSLY WITH 1 CAN OF TUBE FEEDING OR 24 UNITS WITH 2 CANS OF ENTERAL FEEDING THREE TIMES A DAY WITH MEALS 30 mL ctive sennosides-docusate sodium (Senna with Docusate Sodium) 8.6-50 mg per tablet Take 2 tablets by mouth at bedtime. 120 tablet ctive diphenhydramine-lidocaine 2 %-antacid (mw) Take 10 mL by mouth 4 (four) times a day before meals and bedtime. Do not eat or drink for 15-30 minutes after use. 480 mL 03/09/2022ctive varenicline (CHANTIX JOHAN) 0.5 mg (11)- 1 mg (42) tablet Use as directed on package instructions, try to quit smoking after 1 week. 53 tablet 03/27/2022ctive nicotine (Nicoderm CQ) 7 mg/24 hr patch Apply 21 mg patch daily for 4-6 weeks, then taper by 7-14 mg steps every 2-6 weeks until off. Pharmacy - Place on file 28 patch ctive nicotine (Nicoderm CQ) 14 mg/24 hr patch Apply 21 mg patch daily for 4-6 weeks, then taper by 7-14 mg steps every 2-6 weeks until off. Placeon file 28 patch ctive nicotine (Nicoderm CQ) 21 mg/24 hr patch Apply 21 mg patch daily for 4-6 weeks, then taper by 7-14 mg steps every 2-6 weeks until off. 28 patch ctive oxyCODONE (ROXICODONE) 5 mg immediate release tablet Indications:Prolonged Acute Pain/Traumatic InjuryTake 1 tablet (5 mg total) by mouth 2 (two) times a day as needed for moderate pain or score 4-6 of10 or severe pain or score 7-10 of 10 Indication: Prolonged Acute Pain/Traumatic Injury. 10 tablet 03/30/2022ctive Additional Information Patient taking differently:5 mg oral 2 times daily PRN, moderate pain or score 4-6 of 10, severe pain or score 7-10 of 10,(No indications reported), Reported on 02/19/2024 oxyCODONE (ROXICODONE) 5 mg immediate release tablet Indications:Chronic Pain/Nonacute PainTake 1 tablet (5 mg total) by mouth every 6 (six) hours as needed for pain Indication: Chronic Pain/Nonacute Pain. 25 tablet 03/31/2022ctive Additional Information Patient taking differently:5 mg oral Every 6 hours PRN, pain,(No indications reported), Reported on 02/19/2024 BD Li 2nd Gen Pen Needle 32 gauge x 5/32 needle USE TO ADMINISTER INSULIN TWICE DAILY12/13/2022ctive metFORMIN (GLUCOPHAGE) 1,000 mg tablet Take 1 tablet by mouth 2 (two) times a day with meals.08/16/2022ctive atorvastatin (Lipitor) 40 mg tablet Take 40 mg by mouth daily.5Active insulin glargine (Lantus Solostar U-100 Insulin) 100 unit/mL (3 mL) pen Inject 42 Units under the skin.02/10/2025tive insulin lispro (HumaLOG KwikPen Insulin) 100 unit/mL pen INJECT 12 UNITS OF HUMALOG SUBCUTANEOUS BEFORE LUNCH, 16 UNITS BEFORE SUPPER, and 4 UNITS WITH A BEDTIME SNACK. PLUS SLIDING SCALE. 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 Jonzxg362Deficiency Of Other Specified B Group Vitamins 10/10/2017Dysfunction Erectile Following Radical Vxyaiyadyolfx10/03/2016Primary Malignant Neoplasm Of Qrzmubrq53/14/2013Diabetes Mellitus Type Polyp Colon Flwjcxvvcex48/08/2013 Overview (01/18/2022): Colonoscopy 05/2012 polyp repeat in 5 years Colonoscopy 06/2017 diverticulosis , repeat in 5 years Major Depressive Disorder, Recurrent, Uoyamycbrvm48/13/2011Nicotine Dependence Gmcahimvhtx87/31/2008Pure Veimxthlwfuagugtntgh35/31/2008 Resolved Problems ProblemNoted DateDiagnosed DateResolved DateFailure To Thrive Adult01/18/2022 01/24/2022 Encounters DateTypeDepartmentCare PqysXwkrkbrdvld24/04/2025Clinical Communication Department of Radiation Oncology in [address] [phone] Norah Saavedra APRN, C.N.P., D.N.P. 02/19/2025 11:35 AM CDTAncillary Procedure Department of Oncology 02/19/2025 11:30 AM CDTAncillary Procedure Department of Oncology 02/19/2025 10:37 AM CDT - 03/03/2025 4:06 PM CSTHospital Encounter Department of Radiation Oncology in [address] [phone] Harvey Delgado M.D. Malignant Neoplasm Of Tonsil (HCC) (Primary Dx); Nicotine Dependence Unspecified; Personal History Of Nicotine Dependence; Other Specified Disorders Of Thyroidfrom Last 3 Months Immunizations ImmunizationAdministration DatesNext DueInfluenza TIV (IM)01/10/2019,03/06/2017 Influenza, Quadrivalent, Adjuvanted, Preservative Free01/06/2022,02/08/2021, 03/14/20206264ABE1449/31/4001RNAA5242/17/2020,09/03/20121684XQDM-OWS-7 (COVID-19) - PFIZER BIVALENT TS(Discontinued)(12 YEARS OR OLDER)01/06/2022Td (Adult), qrgrruco29/15/1999Td, (Adult) Brtqsiqqbpy39/01/2403Hlpv15/13/2012influenza trivalent high dose (HD)(PF)01/31/2016 Family History Medical HistoryRelationNameCommentsColon cancerFatherCancerSister 1Head/neck CancerSister 2Head/neckRelationNameStatusCommentsFatherSister 1Sister 2 Social History Tobacco UseTypesPacks/DayYears UsedDateSmoking Tobacco: Every DayCigarettes0.511 Smokeless Tobacco: Never Tobacco Cessation:Ready to Q uit: Not Asked; Counseling Given: Not Answered Alcohol UseStandard Drinks/WeekCommentsNot Currently0 (1 standard drink = 0.6 oz pure alcohol)Quit 01/11/16AH UtilitiesAnswerDate RecordedIn the past 12 months has the [employer], gas, oil, or water [employer] threatened to shut off services in your home?No06/29/2023Hunger Vital SignAnswerDate RecordedWithin the past 12 months, you worried that your food would run out before you got the money to buy more.Never true06/29/2023Within the past 12 months, the food you bought just didn't last and you didn't have money to get more.Never true06/29/2023RAPARE - TransportationAnswerDate RecordedIn the past 12 months, has lack of transportation kept you from medical appointments or from getting medications?No 06/29/2023In the past 12 months, has lack of transportation kept you from meetings, work, or from getting things needed for daily living?No06/29/2023 Housing StabilityAnswerDate RecordedWhat is your living situation today?I have a steady place to live06/29/2023Sex and Gender InformationValueDate RecordedSex Assigned at FuwvrMzuz13/08/2024 1:34 PM CSTLegal MjoImro3011/22/2021 3:26 PM CDT Gender VcridyuzCbde61/08/2024 1:34 PM CSTSexual AwuihvttyeaTzjwimbk15/08/2024 1:34 PM UTILIZATION REVIEW COORDINATOR Last Filed Vital Signs Vital SignReadingTime TakenCommentsBlood Ezxxhuts864/7202/19/2025 10:58 AM CDT Oxzkr972102/19/2025 10:58 AM LENKfjwupkynab13.6 ??C (97.9 ??F)02/19/2025 10:58 AM CDTRespiratory Dhmw3326 6:03 PM CDTOxygen Uhwactvkyy45%01/24/2022 6:03 PM CDTInhaled Oxygen Concentration--Jjjvdb02.9 kg (184 lb 15.5 oz)02/19/2025 10:58 AM PBNUwsbll575.5 cm (5' 6.34)03/15/2022 8:19 AM CSTBody Mass Index29.55 03/15/2022 8:19 AM UTILIZATION REVIEW COORDINATOR Plan of Treatment Health MaintenanceDue DateLast DoneCommentsCT Qdowvsypiuma1950Cologuard 1950Depression Monitoring (PHQ-9)1950Diabetic Eye Exam1950 Diabetic Office Visit with Foot Exam1950Hepatitis C Qmiuwserc1950 Office Visit for Blood Pressure Check / Re-check1950Urine Albumin 1950Zoster Vaccines (1 of 2)01/16/2000Hepatitis B Vaccines (1 of 3 - Risk 3-dose series)2010DTaP,Tdap,and Td Vaccines (2 - Td or Tdap)04/04/2022 04/04/2012, 11/21/2001, 02/04/1999Depression Monitoring (PHQ-9 for quality tracking)04/23/2024Fall Risk Screen (Annual)5Creatinine Level (Kidney Function Test)5008/10/2023, 10/10/2022, 01/24/2022, Additional history existsRSV vaccine - (32-36 weeks) or 50+ years (1 - 1-dose 75+ series) 2025Hemoglobin A1C12/509/12/2024, 06/10/2024, 03/10/2024, Additional history existsCOVID-19 Vaccine (2024- season)61, 03/10/2024, 08/10/2023, Additional history zdzukvVfmydgybqsx40 Colorectal Cancer Zqkjfsqysjtz40/15/2028Lipid (Cholesterol) Cpkfsqojk66/19/2029 08/10/2023, 04/10/2022, 05/14/2021, Additional history existsAbdominal Aortic Aneurysm (AAA) LtbrsoJcocvshln11/19/2013Pneumococcal vaccine (50+ years) Slwkxuzpz16/17/2020, 04/22/2015, 09/03/2012Influenza BxvradbGcjlytuwg77/09/2025, 02/18/2024, 01/11/2023, Additional history existsHPV VaccinesAged OutNo longer eligible based on patient's age to complete this topicIPV VaccinesAged OutNo longer eligible based on patient's age to complete this topic Procedures Procedure NamePriorityDate/TimeAssociated DiagnosisCommentsONCOLOGY IMAGE EXAM Vgmlrtk0502/19/2025 11:35 AM CDT ONCOLOGY IMAGE RHHEHxdppal85/30/2025 11:[address] LXPZFoolbwx31/22/2025 1:30 PM CDT BASIC METABOLIC PANEL, S/MNammteq48/04/2022 4:35 AM CDT from Last 3 Months or Most Recently Relevant to Health Maintenance Results * Oral Cavity-Oncology Image Exam (02/19/2025 11:35 AM CDT) Only the most recent of2 resultswithin the time period is included. Specimen (Source)Anatomical Location / LateralityCollection Method / Volume Collection TimeReceived Time02/19/2025 11:30 AM CDT Narrative [facility] - 02/19/2025 1:16 PM CDT This order has been created and auto-finalized to support the import of images acquired without order. The clinical documentation to support these images can be found on the encounter that produced images. Authorizing ProviderResult TypeResult StatusProvider Not In SystemIMG NON RAD IMAGING PROCEDURESFinal ResultPerforming OrganizationAddressCity/State/ZIP Code Phone Number [facility] NA * CT CHEST WO CON-Outside CT Body (02/11/2025 1:30 PM CDT)Specimen (Source) Anatomical Location / LateralityCollection Method / VolumeCollection Time Received Time Narrative [facility] - 02/12/2025 11:20 AM CDT This order has been created and auto-finalized to support the import of outside images. If available, original interpretation can be found on the Media Tab in Chart Review, in Document Viewer, as an image in InfinityView or as an Addendum. If a re-interpretation or overread is required please follow defined workflow. ?? Authorizing ProviderResult TypeResult StatusProvider Not In SystemIMG CT PROCEDURESFinal ResultPerforming OrganizationAddressCity/State/ZIP CodePhone Number [facility] NA * (ABNORMAL) Basic Metabolic Panel (01/24/2022 4:35 AM CDT)ComponentValueRef RangeTest MethodAnalysis TimePerformed AtPathologist SignaturePotassium, S4.2 3.6 - 5.2 mmol/L1 5:41 AM CDTDTLSodium, U919213 - 145 mmol/L 01/24/2022 5:41 AM CDTDTLChloride, S93(L)98 - 107 mmol/L1 5:41 AM CDT DTLBicarbonate, S37(H)22 - 29 mmol/L1 5:41 AM CDTDTLAnion Gap77 - 15 01/24/2022 5:41 AM CDTDTLBUN (Blood Urea Nitrogen), S148 - 24 mg/dL01/24/2022 5:41 AM CDTDTLCreatinine0.73(L)0.74 - 1.35 mg/dL01/24/2022 5:41 AM CDTDTL Estimated GFR (eGFR)>90>=60 mL/min/BSA10/07/2021 5:41 AM CDTDTLComment: Estimated GFR calculated using the 2020 CKD_EPI creatinine equation. Calcium, Total, S7.5(L)8.8 - 10.2 mg/dL01/24/2022 5:41 AM CDTDTLGlucose, S202(H) 70 - 140 mg/dL01/24/2022 5:41 AM CDTDTLSpecimen (Source)Anatomical Location / LateralityCollection Method / VolumeCollection TimeReceived TimeBlood (Blood, Venous)01/24/2022 4:35 AM CDT1 5:25 AM CDT Narrative Authorizing ProviderResult TypeResult StatusMark Resendez D.O.LAB BLOOD ADD-ON Final ResultPerforming OrganizationAddressCity/State/ZIP CodePhone Number [facility] [place] [address] [place] [address], [place] DTL [facility] [address] [place] [address] from Last 3 Months or Most Recently Relevant to Health Maintenance Insurance Advance Directives For more information, please contact: [phone] * Full Code (Latest Code Status on File) Date ActivatedDate InactivatedComments01/18/2022 10:54 01/24/2022 8:14 PM QuestionAnswerCommentsFull Code:* Discussed Care Teams Team MemberRelationshipSpecialtyStart DateEnd Date Elsewhere, Pcp PCP - GeneralInternal Medicine01/18/22
--- OUTSIDE RECORDS SUMMARY | 2025-04-19 04:00 | XMS_ITS ---
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 Past Treatment and Therapy Plans No past plan information found. Past Radiation Episodes * IMRT: Left Head and NeckOverview* First Treatment DateLast Treatment Date Treatment SiteTechniqueGoalEpisode Jhmeyfjx74* Left Head and neck IMRTCurative * Linked Problems Malignant Neoplasm Of Tonsil Treatment Courses* Treatment PeriodFraction DoseFractionsTotal DosePlansPlanned L0CrqO9112/19/2021 - 0 cGy30 / 306,600 cGyReference PointsDelivered ADE4996a35/29/2022 - 01/24/2022?6,600 cGy Lifetime Dose Tracking * ChemicalLifetime DoseAutomatic EntryManual GsvnzNqfmepynu80 mGy39 mGy0 mGy Fluoro Time7.6 minutes7.6 minutes0 minutesDAP (uGy-m2)987.4 uGy-m2987.4 uGy-m2 0 uGy-m2 Resolved Problems ProblemNoted DateDiagnosed DateResolved DateFailure To Thrive Adult01/18/2022 01/24/2022
--- OUTSIDE RECORDS SUMMARY | 2025-04-19 04:00 | XMS_ITS | Clinical Summary ---
Author Organization [employer] [facility] Address [address] [place] [address] Care Team Providers Care Lead Investigator Name Role Phone Jeferson Brush MD Unavailable Jaswant Tirado MD Unavailable Ruperto Rosales MD Primary Care Provider [phone] Beth Kirkpatrick RN Unavailable Unavailabl e Allergies No known active allergies Medications MedicationSigDispense QuantityRefillsLast FilledStart DateEnd DateStatus aspirin (ECOTRIN) 81 mg enteric coated tablet Indications:CVATake 1 tablet by mouth once daily with a meal. 100 tablet Active BD Li 2nd Gen Pen Needle 32 gauge x 5/32 (disposable insulin pen needle) Indications:Type 2 diabetes mellitus with complication, with long-term current use of insulin (HC)USE TO ADMINISTER INSULIN TWICE DAILY 200 Each 4Active metFORMIN (GLUCOPHAGE) 1,000 mg tablet Indications:Type 2 diabetes mellitus with diabetic polyneuropathy, with long- term current use of insulin (HC)Take 1 Tablet (1,000 mg) by mouth two times daily with meals. 180 Tablet 5Active DIABETIC SHOE Indications:Type 2 diabetes mellitus with diabetic polyneuropathy, with long- term current use of insulin (HC)As directed. 2 Each 5Active atorvastatin (LIPITOR) 40 mg tablet Indications:Hyperlipidemia, unspecified hyperlipidemia typeTake 1 Tablet (40 mg) by mouth once daily. 90 Tablet 5Active HumaLOG KwikPen Insulin 100 unit/mL Indications:Type 2 diabetes mellitus with diabetic polyneuropathy, with long- term current use of insulin (HC)INJECT 12 UNITS OF HUMALOG SUBCUTANEOUS BEFORE LUNCH, 16 UNITS BEFORE SUPPER, and 4 UNITS WITH A BEDTIME SNACK. PLUS SLIDING SCALE. UP TO 64 UNITS DAILY 60 mL 5Active pen needle, diabetic (NovoFine Plus) 32 gauge x 1/6 ndle Indications:Type 2 diabetes mellitus with diabetic polyneuropathy, with long- term current use of insulin (HC)For administering insulin at home. 300 Each 5Active Lantus Solostar U-100 Insulin 100 unit/mL (3 mL) pen Indications:Type 2 diabetes mellitus with diabetic polyneuropathy, with long- term current use of insulin (HC)Inject 42 units subcutaneous before bedtime. Product desired: LANTUS SOLOSTAR 36 mL 5Active FreeStyle Nhea 3 Plus Sensor for continuous blood glucose monitor (CGM) Indications:Type 2 diabetes mellitus with diabetic polyneuropathy, with long- term current use of insulin (HC)CHANGE SENSOR EVERY 15 DAYS 6 Each 5Active Active Problems ProblemNoted DateDiagnosed DateHistory of alcohol abuse10/10/2022Malignant neoplasm of fpoxpd6912/13/2021cute ischemic left middle cerebral artery (MCA) mifurn8805/13/2021B12 xswkmxfloy89/20/2018Erectile dysfunction following radical jgevlcwynqzyt06/03/2016Prostate ycdrlm1209/03/2012Type 2 diabetes mellitus with diabetic polyneuropathy, with long-term current use of knqxrub7306/03/2012 Adenomatous colon polyp05/31/2012 Overview (03/10/2024): Colonoscopy 05/2012 polyp repeat in 5 years Colonoscopy 06/2017 diverticulosis , repeat in 5 years Colonoscopy 09/2022, repeat in 7 years Major depression, zkbsjxitg06/13/2011Pure fylpyetiuuyoftjrewib40/31/2008Nicotine mdfkkuttzh07/31/2008 Resolved Problems ProblemNoted DateDiagnosed DateResolved DatePresence of ubtzfuxyovs79/21/2023 08/10/2023Hemiplegia affecting right dominant side, unspecified etiology, unspecified hemiplegia type/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 Paranoid uvmjhtizjuzsg58 Overview (10/10/2022): Per ex-, diagnosed at age 27 Severe protein-calorie malnutrition (Sinclair: less than 60% of standard weight) /erebral infarction due to occlusion of middle cerebral gntnej62sychosisTobacco use disorder Encounters DateTypeDepartmentCare FusyPayhfusdmxo95/07/2025Telephone [facility] [address] [place] [address] Richard Layton MD Uuusqejc27/04/2025 1:00 PM CSTPatient Outreach [address] [address] Sabrina Rutherford RN Diabetes (Assessment/high A1C)02/24/20254454Spdhfl39/31/2025Telephone [facility] [address] [place] [address] Ruperto Rosales MD Referral (Vascular Surgery)02/13/2025Refill [address] [address] Ruperto Rosales MD Refill Request (Freestyle Neha 3 Plus Sensor)02/11/2025Orders Only [facility] Scanner 1 scan: (1-Ord) [facility], CT CHEST WO CON , Orders Only [facility] Scanner 1 scan: (1-Ord) [facility] CT CHEST WO CON, Orders Only [facility] Scanner 1 scan: (1-Ord) [place], CAROTID BILATERAL, 1:10 PM CDT Office Visit [facility] [address] [place] [address] Ruperto Rosales MD Medicare ANNUAL (subsequent) Visit (75 yr old male)02/10/2025Travelfrom Last 3 Months Immunizations ImmunizationAdministration DatesNext DueCOVID-19 VACCINE SPIKEVAX (MODERNA 50MCG/0.5ML) 12YO+ PFS02/10/2025,03/10/2024,4COVID-19 vaccine ([employer]- BioNTech 30mcg/0.3mL) 12YO+ BIVALENT PF, MDV2COVID-19 vaccine (Pfizer- BioNTech 30mcg/0.3mL) PF, MDV07/16/2020,06/25/2020Influenza, High-dose Unootoagdti88/28/2024,01/31/2016Influenza, Inactivated AIIV4 (Age 65+ Years) Preserv Free01/11/2023,01/06/2022,02/08/2021,03/14/2020Influenza, Inactivated IIV3 (Age 65+ Years) Preserv Free12/30/2024,01/10/2019,03/06/2017Pneumococcal Poly,23-Valent (Pneumovax)07/08/2019,09/03/2012Pneumococcal conj 13-Valent (Prevnar 13)04/22/2015Td (Age >=7 Years)11/21/2001,02/04/1999Tdap106/05/2011 Family History Medical HistoryRelationNameCommentsCancer-colonFatherOtherFatherdeceased at age 85OtherMotherdeceased at age 87RelationNameStatusCommentsFatherMother Social History Tobacco UseTypesPacks/DayYears UsedDateSmoking Tobacco: Every DayCigarettes0.511 Started: 1973; Last attempted to quit: 1975Smokeless Tobacco: Never Tobacco Cessation:Ready to Q uit: No; Counseling Given: Yes Comments:ATQ Alcohol UseStandard Drinks/WeekCommentsNo0 (1 standard drink = 0.6 oz pure alcohol)Quit 01/11/16PHQ-2AnswerDate RecordedPHQ-2 TOTAL GFFKA316Social ConnectionsAnswerDate RecordedDo you often feel lonely or isolated from those around you?lcohol UseAnswerDate RecordedHow often do you have a drink containing alcohol?verage Number of DrinksNot on file 02/10/2025Frequency of Binge DrinkingNot on file02/10/2025Financial Resource StrainAnswerDate RecordedDifficulty of Paying Living Zrycsnkv786/09/2025 Difficulty of Paying Living ExpensesNot on file12/30/2024Food InsecurityAnswer Date RecordedDo you worry your food will run out before you are able to buy more?Transportation NeedsAnswerDate RecordedDoes lack of transportation keep you from medical appointments?Does lack of transportation keep you from work, meetings or getting things that you need?1 12/30/2024Housing StabilityAnswerDate RecordedWhat is your housing situation today?UtilitiesAnswerDate RecordedDo you have trouble paying for utilities (for example, heat, electricity, water, phone)?Sex and Gender InformationValueDate RecordedSex Assigned at BirthNot on fileLegal Sex Male05/06/2012 7:28 AM CSTGender IdentityNot on fileSexual OrientationNot on file Last Filed Vital Signs Vital SignReadingTime TakenCommentsBlood Rcpboymo887/6602/10/2025 1:09 PM CDT Hicmn791402/10/2025 1:09 PM STKExvlctmncla90.1 ??C (97 ??F)11/01/2021 12:56 PM CDT Respiratory Jksi296910/05/2022 10:11 AM CDTOxygen Kwhhteuxgn65%02/10/2025 1:09 PM CDTInhaled Oxygen Concentration--Fumlvq16.6 kg (177 lb 11.2 oz)02/10/2025 1:09 PM XWBGkdike558.6 cm (5' 5.59)02/10/2025 1:09 PM CDTBody Mass Index29.04 02/10/2025 1:09 PM CDT Plan of Treatment DateTypeDepartmentCare Team (Latest Contact Info)Cfyywbokszz73/12/2026 9:30 AM CSTOffice Visit [facility] [address] [place] [address] Alec Garner MD [address] [facility] [address] [place] [address] 05/14/2025 10:15 AM CSTOffice Visit [facility] [address] [place] [address] Ruperto Rosales MD [address] [place] [address] Health MaintenanceDue DateLast DoneCommentsZoster (shingles) series for age 50+ (1 of 2)1969Tetanus lnduyhs55, 04/04/2012, 11/21/2001, Additional history existsRSV vaccine for adults or (1 - 1-dose 75+ series)5COVID-19 vaccine series (9 - Pfizer risk 2024- season) , 03/10/2024, 08/10/2023, Additional history existsBMI (ht and wt on same day) for age 18+, 11/10/2022, 01/06/2022, Additional history existsDepression screening for age 12+ Medicare Wellness for age 65+, 01/06/2022, 07/08/2019 Colonoscopy through age 7506/15/38070110/05/2022, 10/05/2022, 06/27/2017, Additional history existsLipids for age 45-7511/9105/10/2023, 08/10/2023, 04/10/2022, Additional history existsPneumococcal series for age 50+Completed 07/08/2019, 04/22/2015, 09/03/2012Hepatitis C screening for age 18-79Completed 05/03/2020Influenza NfyxydcKkprwjcqz11/09/2025, 02/18/2024, 01/11/2023, Additional history existsHepatitis B series for 19+Aged OutNo longer eligible based on patient's age to complete this topic Procedures Procedure NamePriorityDate/TimeAssociated DiagnosisCommentsSCAN-CT SZFIBGOZOYZPUJ32/22/2025 12:00 AM CDTSCAN-CT OQTJRCLEXZNLBP73/22/2025 12:00 AM CDTSCAN-ULTRASOUND SHDSCS5802/11/2025 12:00 AM CDT LIPID JXIWWOaiwzwt26/18/2024 10:50 AM [employer]BER Hyperlipidemia, unspecified hyperlipidemia type SEHMZUMYFSJ08/15/2023 8:56 AM CDT ANTI HCVAdd On05/03/2020 9:39 AM [employer] Need for hepatitis C screening test from Last 3 Months or Most Recently Relevant to Health Maintenance Results * SCAN-ULTRASOUND REPORT (02/11/2025 12:00 AM CDT)Anatomical RegionLaterality ModalityOther Narrative Authorizing ProviderResult TypeResult StatusScannerOTHERFinal Result * SCAN-CT INTERPRETATION (02/11/2025 12:00 AM CDT) Only the most recent of2 resultswithin the time period is included. Anatomical RegionLateralityModalityOther Narrative Authorizing ProviderResult TypeResult StatusScannerOTHERFinal Result * (ABNORMAL) LIPID PANEL (03/10/2024 10:50 AM B[employer]BER)ComponentValueRef RangeTest MethodAnalysis TimePerformed AtPathologist SignatureCHOLESTEROL, CDMOT208<200 mg/dLQuest Diagnostics-Lifebooker.com DaleHDL PNOCXFGXQIJ57> OR = 40 mg/dLQuest Diagnostics-Lifebook[facility].com CnxwOLWYVQIZBJFYV733(H)<150 mg/dLQuest Diagnostics-[place] LDL-XMBITSWOXRA04cc/dL (calc)[facility].com DaleComment: Reference range: <100 Desirable range <100 mg/dL for primary prevention; <70 mg/dL for patients with CHD or diabetic patients with > or = 2 CHD risk factors. LDL-C is now calculated using the Jose calculation, which is a validated novel method providing better accuracy than the Friedewald equation in the estimation of LDL-C. Jeferson ALVARADO et al. SHAUNNA. 2013;310(79): 9743-5469 (http://education.DataMotion/faq/SED634) CHOL/HDLC RATIO2.1<5.0 (calc)[facility] SolutionsPhillips Eye InstituteeNON HDL WFEOFPJHFYZ77 <130 mg/dL (calc)[employer] Intelligence SolutionsChippewa City [facility] PedritoeComment: For patients with diabetes plus 1 major ASCVD risk factor, treating to a non-HDL-C goal of <100 mg/dL (LDL-C of <70 mg/dL) is considered a therapeutic option. Specimen (Source)Anatomical Location / LateralityCollection Method / Volume Collection TimeReceived TimeBloodBLOOD SPECIMEN / Rulxnxn4503/10/2024 10:50 AM [employer] 03/10/2024 10:52 AM [employer]BER Narrative Authorizing ProviderResult TypeResult StatusKyshaheen Rosales [facility] – CUSHINGHEMISTRYFinal ResultPerforming OrganizationAddressCity/State/ZIP CodePhone Number [facility] [address] [place] [address], [place] [facility] [address] [place] [address] * COLONOSCOPY (10/05/2022 8:56 AM CDT)Specimen (Source)Anatomical Location / LateralityCollection Method / VolumeCollection TimeReceived Time10/05/2022 8:56 AM CDT Narrative Transcriptions Jeferson Brush MD - 10/05/2022 9:56 AM CDT Patient Name: Bethel Mcguire Procedure Date: 10/05/2022 Gender: Male Date of : 1950 Admit Type: Outpatient Procedure: Colonoscopy Proceduralist: Jeferson Brush MD , Ayesha Kevin (Nurse), Jessica Rodríguez (Nurse) Indications/Pre-Op Diagnosis: High risk colon cancer surveillance:Personal history of adenoma less than 10 mm in size, Last colonoscopy: June 2017 Medications: Fentanyl 100 micrograms IV, Midazolam 2 mgIV Procedure Description: The patient had risks, benefits and alternatives explained to andgave informed consent. The patient had a stable cardiopulmonary status and judged an adequate candidate for conscious sedation. The [id number] was passed through the anus and advanced to the cecum, identified by appendiceal orifice and ileocecal valve. Thecolonoscopy was performed without difficulty. The patient tolerated the procedure well. The quality of the bowel preparation was good. The ileocecal valve, appendiceal orifice, and rectum were photographed. Complications: No immediate complications. Estimated Blood Loss & Specimen: Estimated blood loss: none. Specimen collected - None Findings: The perianal and digital rectal examinations were normal. Scattered small and large-mouthed diverticula were found in thesigmoid colon and descending colon. There was no evidence of diverticular bleeding. A moderate amount of stool was found in the entire colon, interfering with visualization. Lavage of the area was performed using a large amount of sterile water, resulting in clearance with adequate visualization. The exam was otherwise without abnormality. Impressions/Post-Op Diagnosis: - Mild diverticulosis in the sigmoid colon and in the descendingcolon. There was no evidence of diverticular bleeding. - Stool in the entire examined colon. - The examination was otherwise normal. - No specimens collected. Recommendation: - Patient has a contact number available for emergencies. The signsand symptoms of potential delayed complications were discussed with the patient. Return to normal activities tomorrow. Written discharge instructions were provided to the patient. - Resume previous diet. - Continue present medications. - Repeat colonoscopy in 7 years for surveillance. - For future colonoscopy the patient will require an extended preparation, Peg 2L. If there are any questions, please contact the coconut boiler. Moderate Sedation: A time out was performed before the procedure. Moderate (conscious) sedation was administered by the endoscopy nurse and supervised bythe endoscopist. The following parameters were monitored: oxygensaturation, heart rate, blood pressure, EKG, CO2, respiratory rate, adequacy of pulmonary ventilation and reponse to care. Please refer to the patient's medical record flowsheets and nursing notes for moderate sedation details. Total physician intraservice time was 21 minutes. Jeferson Brush MD 10/05/2022 9:56:24 AM This report has been signed electronically. Note Initiated On: 10/05/2022 8:56 AM Procedure Code(s): --- Professional --- 11307, Colonoscopy, flexible; diagnostic, including collection of specimen(s) bybrushing or washing, when performed (separateprocedure) Diagnosis Code(s): --- Professional --- Z86.010, Personal history of colonicpolyps K57.30, Diverticulosis of large intestine without perforation or abscess withoutbleeding CPT copyright 2021 [employer]. All rights reserved. The codes documented in this report are preliminary and upon vest busheler reviewmay be revised to meet current compliance requirements. Scope In: 9:28:05 AM Scope Withdrawal Time 0 hours 9 minutes 47 seconds Scope Out: 9:47:25 AM Authorizing ProviderResult TypeResult StatusJeferson Brush MDPROCEDURE ORD Final Result * ANTI HCV (05/03/2020 9:39 AM [employer])ComponentValueRef RangeTest MethodAnalysis TimePerformed AtPathologist SignatureHEPATITIS C ANTIBODYNon-Reactive Non-Pmxhgipv79/11/2021 6:33 PM CSTALLFAIRFAX [facility] Comment:Antibodies to HCV not detected; does not exclude the possibility of exposure to HCV.Specimen (Source)Anatomical Location / LateralityCollection Method / VolumeCollection TimeReceived TimeBloodBLOOD SPECIMEN / Unknown Venipuncture / Epozsij3705/03/2020 9:39 AM CST05/03/2020 9:39 AM B[employer]BER Narrative Authorizing ProviderResult TypeResult StatusRuperto Rosales MDSEND OUTSFinal ResultPerforming OrganizationAddressCity/State/ZIP CodePhone Number [facility] [address] [place] [address], from Last 3 Months or Most Recently Relevant to Health Maintenance Insurance * Guarantor: Bethel Mcguire TypeRelation to PatientDate of PhoneBilling AddressPersonal/FuvxxyYamo1950 [address] [place] [address] Advance Directives TypeDate RecordedPatient RepresentativeExplanationHealthcare Directive09/06/2012 6:27 PMADVANCED DIRECTIVE w/ P.O.A. for HEALTH CARE * Full Code (Latest Code Status on File) Date ActivatedDate InactivatedComments11/01/2021 7:43 AM11/01/2021 3:45 PMQuestion AnswerCommentsCode Status Discussion:* Reviewed Preferences * Full Code Date ActivatedDate InactivatedComments10/11/2021 9:45 AM10/11/2021 1:22 PMQuestion AnswerCommentsCode Status Discussion:* Reviewed Preferences * Full Code Date ActivatedDate InactivatedComments07/19/2021 5:52 AM07/19/2021 6:24 PMQuestion AnswerCommentsCode Status Discussion:* Reviewed Preferences * Full Code Date ActivatedDate InactivatedComments05/15/2021 10:41 AM05/19/2021 11:56 AM QuestionAnswerCommentsCode Status Discussion:* Reviewed Preferences * Full Code Date ActivatedDate InactivatedComments05/13/2021 8:10 PM05/15/2021 10:41 AM QuestionAnswerCommentsCode Status Discussion:* Unable to Assess Preferences, Provider to review later Care Teams Team MemberRelationshipSpecialtyStart DateEnd Ruperto Rosales MD [address] [place] [address] PCP - GeneralFamily Practice05/03/20 Jeferson Brush MD [address] [place] [address] Gastroenterology07/01/12 Jaswant Tirado MD [address] [place] [address] Surgery - Urology07/01/12 Beth Kirkpatrick RN [address] [place] [address] Nurse Navigator - OncologyRegistered Nurse11/11/21
--- OUTSIDE RECORDS SUMMARY | 2025-04-19 04:01 | XMS_ITS | Patient Health Record ---
Author Organization [facility] Address [address] [place] [address] Phone [phone] Care Team Providers Care Convertible Power Shovel Operator Name Role Phone Bobby Ruperto Primary Care Provider UnavailDIONNE Lee MD Unavailable Maulik Orlando Unavailable Unavailable Allergies No Known Allergies Reason For Referral No Information Medications Medication SIG (Take, Route, Frequency, Duration) Notes Start Date End Date Diagnosis (ICD Code) Status Lantus ActiveNovoLOGActivemetFORMIN HCl 1000 MG TabletTAKE 1 TABLET BY MOUTH TWICE DAILY WITH MEALS Oral; Duration: 37ActiveFreeStyle Neha 14 Day Sensor - Miscellaneous; Duration: 28ActiveAtorvastatin CalciumActiveAspirinActive Social History Tobacco Use: Social History Observation Description Date Details (start date - stop date) Current Smoker NA - NA Sex Observation Social History Observation Description Sex Observation Male Social History Tobacco Use:Social InfoQuestionAnswerNotesTobacco use/smokingAre you acurrent smoker? How often do you smoke cigarettes?every day? How many cigarettes a day do you smoke?6-10? How soon after you wake up do you smoke your first cigarette? 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) Added On:07/28/2021 ActiveconfirmedProblemHistory of cerebrovascular accident without residual deficits (846663418)H/O: CVA (cerebrovascular accident) (Z86.73) Added On:05/25/2021 ActiveconfirmedProblemMetastatic malignant neoplasm to lymph nodes of neck (disorder) (89444534)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) Added On:07/26/2021 Activeconfirmed Plan Of Treatment No Information Insurance Providers Payer Name Payer Address Payer Phone Subscriber Number Group Number Insured Name Patient Relationship to Insured Coverage Start Date Coverage End Date [employer] [facility] [address] [address] [address] [place], [place] [id number], StanleySelf - patient is the insuredMEDICAREPO [address] [place] [id number], StanleySelf - patient is the [id number] 2012 Medical (General) History Medical History History ICD Code Covid-19 Vaccine 03/2021 Prostate CADiabetesStrokeSurgical History Surgery Date(Month/Year) Prostate removal HeartHospitalization History Reason Date(Month/Year) Same as Surgical history
--- OUTSIDE RECORDS SUMMARY | 2025-04-19 04:01 | XMS_ITS | CCD ---
Author Name Interface, A0Jluwuon lity Address [address] [facility] [address] [place] [id number] Organization [facility] Address [address] [facility] [address] [place] [address] Care Team Providers Care Plating And Point Assembly Supervisor Name Role Phone Maulik Orlando MD Unavailable Unavailable Reason for Visit Social History Date Name Value 05/24/2021 Sex Male
[2025-04-19 04:04] VITALS: BP 148/76; PULSE 86; RESP 18; TEMP 36.9; O2SAT 95; BMI 28.7
--- NOTE | 2025-04-19 04:15 | ED.GENADULT ---
HPI - General Adult General Chief complaint: Dental/Oral/Mouth Injury/Pain Stated complaint: Tooth ache Time Seen by Provider: 04/19/25 04:15 History of Present Illness HPI narrative: Has toothache that he has an appt to pull on Sunday at his dentist. It is his right lower molar that is hurting . Pain increasing to almost intolerable level 12/31 and Tylenol/ ibuprofen are not helping to relieve any of the pain. Last took ibuprofen at 0300 today. Denies facial swelling, fevers, N/V or any other symptoms related to his tooth pain. 75-year-old man presenting to the emergency department with concern of dental pain. He does have an appointment in 3 days for dental extraction. He has been treating with ibuprofen. No trauma. Has been intermittently hurting for some time. No drainage. No fever. Related Data Home Medications ?Medication ?Instructions ?Recorded ?Confirmed atorvastatin 40 mg tablet 40 mg PO QDAY 12/16/21 04/19/25 flash glucose sensor (FreeStyle #1 ea 12/16/21 01/16/22 Neha 14 Day Sensor kit) insulin glargine 100 unit/mL (3 1 unit subcut HS 12/16/21 04/19/25 mL) subcutaneous pen (Lantus Solostar U-100 Insulin) insulin lispro 100 unit/mL 1 sliding scale dose subcut PRN 12/16/21 01/02/22 subcutaneous pen (Humalog KwikPen (U-100) Insulin) metformin 1,000 mg tablet 1,000 mg PO BIDWMEAL 12/16/21 04/19/25 Previous Rx's ?Medication ?Instructions ?Recorded lorazepam 0.5 mg tablet 0.5 mg PO Q4H PRN nausea #40 tabs 12/16/21 olanzapine 5 mg tablet 5 mg PO QPM nausea #12 tabs 01/06/22 calcium carbonate (Tums) 300 mg PO QDAY Hypocalcemia #100 01/13/22 tabs hydrocodone 5 mg-acetaminophen 325 1 - 2 tab PO Q4-6H PRN pain #8 tabs 04/19/25 mg tablet Allergies Allergy/AdvReac Type Severity Reaction Status Date / Time No Known Drug Allergies Allergy Verified 04/19/25 04:13 Review of Systems Status of ROS: Reports: 6 or more systems reviewed and unremarkable except as noted in History and below PFSH COUNT INCLUDES THE [facility] Medical History Erectile dysfunction after radical prostatectomy ?N52.31 - Erectile dysfunction following radical prostatectomy (ICD-10) Colon polyp ?K63.5 - Polyp of colon (ICD-10) Schizophrenia ?F20.9 - Schizophrenia, unspecified (ICD-10) Depression ?F32.A - Depression, unspecified (ICD-10) Prostate cancer ?C61 - Malignant neoplasm of prostate (ICD-10) Hypercholesterolemia ?E78.00 - Pure hypercholesterolemia, unspecified (ICD-10) DM2 (diabetes mellitus, type 2) ?E11.9 - Type 2 diabetes mellitus without complications (ICD-10) Surgical History S/P prostatectomy ?Z90.79 - Acquired absence of other genital organ(s) (ICD-10) Family History Father Colon cancer Sister No problems noted. Sister Head and neck cancer Social History Narrative: The patient is . He has 3 children and 4 grandchildren. 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 He is a current smoker, half a pack a day, he quit at age 23 for approximately 30 years and restarted again once he was . No alcohol consumption, past history of alcohol abuse, quit approximately 7 years ago. Currently lives with roommate. Smoking Status: Current every day smoker What tobacco products do you use: cigarettes Do you use any of these nicotine containing products: None How often do you have a drink containing alcohol: never How often do you have six or more drinks on one occasion: Never AUDIT-C Alcohol total score: 0 Non-prescribed substance use: denies use service: No Exam Narrative: Exam Narrative: Talkative. Moving. Restless in pain? Underlying dyskinesia? Tooth in question apparently is the right posterior most molar. He is missing a number of teeth. Particular tooth looks to have been capped. There is no swelling of the area. No jaw swelling. No cervical lymphadenopathy. Const: Vital Signs, click to edit/add: Vital Signs - 24 hr 04/19/25 04:04 Temperature 98.5 F Pulse Rate [Right Pulse Oximeter] 86 Respiratory Rate 18 Blood Pressure [Ri ght Upper Arm] 148/76 H Pulse Oximetry 95 Oxygen Delivery Me thod Room Air Documenting provider has reviewed patient's vital signs: yes Course Vital Signs Vital signs: Initial Vital Signs Temperature 98.5 F 04/19/25 04:04 Temperature Source Temporal Artery Scan 04/19/25 04:04 Pulse Rate 86 04/19/25 04:04 Pulse Rhythm Regular 04/19/25 04:04 Respiratory Rate 18 04/19/25 04:04 Blood Pressure 148/76 H 04/19/25 04:04 Blood Pressure Mean 100 04/19/25 04:04 Blood Pressure Position Sitting 04/19/25 04:04 Pulse Oximetry 95 04/19/25 04:04 Oxygen Delivery Method Room Air 04/19/25 04:04 Vital Signs Temperature 98.5 F 04/19/25 04:04 Pulse Rate 86 04/19/25 04:04 Respiratory Rate 18 04/19/25 04:04 Blood Pressure 148/76 H 04/19/25 04:04 Pulse Oximetry 95 04/19/25 04:04 Oxygen Delivery Method Room Air 04/19/25 04:04 Temperature 98.5 F 04/19/25 04:04 Pulse Rate 86 04/19/25 04:04 Respiratory Rate 18 04/19/25 04:04 Blood Pressure 148/76 H 04/19/25 04:04 Pulse Oximetry 95 04/19/25 04:04 Oxygen Delivery Method Room Air 04/19/25 04:04 Medical Decision Making MDM Narrative Medical decision making narrative: Discussed options for care. Uncertain whether not this represents an abscess/Infection but not unreasonable to treat as if that is the case. Does have a history of diabetes and so would use more caution. Afebrile and I do not think needs evaluation or workup otherwise. He would appreciate a dental block of some sort for more immediate relief when discussing options. says that he has follow-up appointment already pending. Probably good to give antibiotics anticipation of this upcoming appointment as well. did decide to proceed with dental block specifically inferior alveolar block with bupivacaine 0.25%. 1.5 mL was injected into the posterior right space for inferior alveolar block. well tolerated without apparent complications. Fairly shortly after this, was feeling good relief. See patient discharge plan for further discussion I'm happy you are feeling better. Prescribing amoxicillin as antibiotic from [facility]. Unfortunately we are out of some of the medications for pain we talked about in our [facility]. Hopefully the injection you got of bupivacaine lasts for quite a few hours. I am sending in some [place] to your pharmacy. Each tablet contains 5 mg of hydrocodone and 325 mg of acetaminophen. Can take up to 800 mg of ibuprofen or up to 1000 mg of acetaminophen per dose. Follow-up on Sunday as planned for further cares. Medical Records Medical records reviewed: Yes I reviewed the patient's medical records Discharge Plan Discharge Clinical Impression: Pain, dental Patient Disposition: Home, Self-Care Condition: Improved Additional Instructions: I'm happy you are feeling better. Prescribing amoxicillin as antibiotic from [facility]. Unfortunately we are out of some of the medications for pain we talked about in our [facility]. Hopefully the injection you got of bupivacaine lasts for quite a few hours. I am sending in some [place] to your pharmacy. Each tablet contains 5 mg of hydrocodone and 325 mg of acetaminophen. Can take up to 800 mg of ibuprofen or up to 1000 mg of acetaminophen per dose. Follow-up on Sunday as planned for further cares. Prescriptions: New hydrocodone-acetaminophen 5-325 mg tablet 1 - 2 tab PO Q4-6H PRN (Reason: pain) Qty: 8 0RF No Action calcium carbonate [Tums] 300 mg (750 mg) tablet,chewable 300 mg PO QDAY Qty: 100 0RF Rx Instructions: Chew one tablet in the morning. lorazepam 0.5 mg tablet 0.5 mg PO Q4H PRN (Reason: nausea) Qty: 40 0RF insulin glargine [Lantus Solostar U-100 Insulin] 100 unit/mL (3 mL) insulin pen 1 unit subcut HS Patient Comments: INJECT 35 UNITS SUBCUTANEOUS BEFORE BEDTIME insulin lispro [Humalog KwikPen Insulin] 100 unit/mL insulin pen 1 sliding scale dose subcut PRN atorvastatin 40 mg tablet 40 mg PO QDAY (DME) FreeStyle Neha 14 Day Sensor Kit See Rx Instructions .ROUTE .MEDSUPPLY Qty: 1 Patient Comments: USE DIRECTED Rx Instructions: As directed metformin 1,000 mg tablet 1,000 mg PO BIDWMEAL Patient Comments: TAKE 1 TABLET BY MOUTH TWICE DAILY WITH MEALS olanzapine 5 mg tablet 5 mg PO QPM Qty: 12 0RF Rx Instructions: Take at Bedtime, starting day of chemotherapy,for 4 days. Repeat with each cycle. Follow Up/Referrals: Ruperto Rosales MD [Primary Care Provider, Family Practice] Stand Alone Forms: Lexy[facility] Info Instructions
--- OUTSIDE RECORDS SUMMARY | 2025-04-19 04:25 | XMS_ITS | CCD ---
Author Name Interface, [id number] lity Address [address] [facility] [address] [id number] Organization [facility] Address [address] [facility] [address] [place] [address] Care Team Providers Care Director Investor Relations Name Role Phone Maulik Orlando MD Unavailable Unavailable Reason for Visit Social History Date Name Value 05/24[birth year]2021 Sex Male
--- OUTSIDE RECORDS SUMMARY | 2025-04-19 04:25 | XMS_ITS | Patient Health Record ---
Author Organization 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) Added On:07/28/2021 ActiveconfirmedProblemHistory of cerebrovascular accident without residual deficits (237305339)H/O: CVA (cerebrovascular accident) (Z86.73) Added On:05/25/2021 ActiveconfirmedProblemMetastatic malignant neoplasm to lymph nodes of neck (disorder) (75720259)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) Added On:07/26/2021 Activeconfirmed Plan Of Treatment No Information Insurance Providers Payer Name Payer Address Payer Phone Subscriber Number Group Number Insured Name Patient Relationship to Insured Coverage Start Date Coverage End Date [employer] [facility] [id number] [address] [address] [place], [place] [id number], StanleySelf - patient is the insuredMEDICAREPO [address] [place] [id number], StanleySelf - patient is the [id number] 2012 Medical (General) History Medical History History ICD Code Covid-19 Vaccine 03/2021 Prostate CADiabetesStrokeSurgical History Surgery Date(Month/Year) Prostate removal HeartHospitalization History Reason Date(Month/Year) Same as Surgical history
--- OUTSIDE RECORDS SUMMARY | 2025-04-19 04:25 | XMS_ITS | CCD ---
Author Name Interface, [id number] lity Address [address] [facility] [address] [phone] Organization [facility] Address [address] [facility] [address] [place] [address] Care Team Providers Care Corporation Officer Name Role Phone Maulik Orlando MD Unavailable Unavailable Reason for Visit Social History Date Name Value 05/24/2021 Sex Male
== END 2025-04-19 04:53 | disposition home or self-care (01) ==
PROVIDERS: Emergency Provider Family Medicine; PCP Surgery
DX: K08.89 Other specified disorders of teeth and supporting structures (principal); F17.210 Nicotine dependence, cigarettes, uncomplicated; E11.9 Type 2 diabetes mellitus without complications; Z79.4 Long term (current) use of insulin; Z79.84 Long term (current) use of oral hypoglycemic drugs
CPT/HCPCS: 64400; 64405; 99284